=== PATIENT | male | born 1950 | race Two or more races ===

== ENCOUNTER 2019-06-12 11:58 | Outpatient (CLI) | payer OTHER ==
[~2019-06-12] VITALS: Ht 152.4 cm; Wt 74.8 kg
== END 2019-06-12 12:45 | disposition home or self-care (01) ==
LOC: OFIC 805 11:58
DX: H70.13 Chronic mastoiditis, bilateral (principal); H69.83 Other specified disorders of Eustachian tube, bilateral; H90.6 Mixed conductive and sensorineural hearing loss, bilateral; H61.23 Impacted cerumen, bilateral; H71.13 Cholesteatoma of tympanum, bilateral

== ENCOUNTER 2019-07-03 10:09 | Outpatient (CLI) | payer OTHER ==
[~2019-07-03] VITALS: Ht 152.4 cm; Wt 72.6 kg
== END 2019-07-03 11:00 | disposition home or self-care (01) ==
LOC: OFIC 805 10:09
DX: H70.13 Chronic mastoiditis, bilateral (principal); H69.83 Other specified disorders of Eustachian tube, bilateral; H90.6 Mixed conductive and sensorineural hearing loss, bilateral; H61.23 Impacted cerumen, bilateral; H71.13 Cholesteatoma of tympanum, bilateral

== ENCOUNTER 2019-10-06 12:55 | Outpatient (CLI) | payer OTHER ==
[~2019-10-06] VITALS: Ht 152.4 cm; Wt 74.8 kg
== END 2019-10-06 16:15 | disposition home or self-care (01) ==
LOC: OFIC 805 12:55
DX: H90.6 Mixed conductive and sensorineural hearing loss, bilateral (principal); H61.23 Impacted cerumen, bilateral; H69.83 Other specified disorders of Eustachian tube, bilateral; H70.893 Other mastoiditis and related conditions, bilateral; H71.13 Cholesteatoma of tympanum, bilateral

== ENCOUNTER 2019-10-13 08:55 | Outpatient (CLI) | payer OTHER | END 2019-10-13 11:52 | disposition home or self-care (01) | LOC: OFIC 805 08:55 | DX: H70.13 Chronic mastoiditis, bilateral (principal); H69.83 Other specified disorders of Eustachian tube, bilateral; H90.6 Mixed conductive and sensorineural hearing loss, bilateral; H71.13 Cholesteatoma of tympanum, bilateral; H61.23 Impacted cerumen, bilateral | CPT/HCPCS: 69210; 99204; G0463 ==

== ENCOUNTER 2021-12-29 08:10 | Day surgery (SDC) | payer OTHER ==
[~2021-12-29] VITALS: Ht 160 cm; Wt 74.8 kg
[~2021-12-29 08:10] MED LIST: CLONAZEPAM0.5 MG PO; PROZAC10 M1 PO; TERBINAFINE HC250 MG PO
[2021-12-29] MEDS ORDERED: CEPHALEXIN500 MG PO (14:05)
[2021-12-29] MEDS ORDERED: CILOXAN5 ML OTIC (14:05)
[2021-12-29] MEDS ORDERED: ZOFRAN8 MG PO (14:06)
== END 2021-12-29 16:50 | disposition home or self-care (01) ==
LOC: CIR.AMB 08:10
PROVIDERS: ATTEND Otolaryngology Otology & Neurotology
DX: H90.A12 Conductive hearing loss, unilateral, left ear with restricted hearing on the contralateral side (principal); H72.12 Attic perforation of tympanic membrane, left ear; H71.22 Cholesteatoma of mastoid, left ear; Z91.013 Allergy to seafood; Z88.8 Allergy status to other drugs, medicaments and biological substances; F17.210 Nicotine dependence, cigarettes, uncomplicated; Z71.6 Tobacco abuse counseling; G43.909 Migraine, unspecified, not intractable, without status migrainosus